=== PATIENT | female | born 1940 | race Caucasian/White ===

== ENCOUNTER 2024-06-08 05:09 | Day surgery (SDC) | payer OTHER ==
[2024-06-07 19:44] VITALS: BMI 22.1
[2024-06-08] MEDS ORDERED: ISOSULFAN BLUE 50 MG/5 ML VIAL SQ ONE (07:58)
[2024-06-08] MEDS ORDERED: LIDOCAINE HCL 1%, 10 MG/ML (20ML VIAL) ONE (07:58)
[2024-06-08] MEDS ORDERED: PROPOFOL 20 ML ONE (08:51)
[2024-06-08] MEDS ORDERED: LIDOCAINE HCL/PF 2% SDV 5ML VIAL ONE (08:52)
[2024-06-08] MEDS: ceFAZolin SODIUM 1 GM VIAL IVPB ONE ×2 (09:55)
[2024-06-08] MEDS ORDERED: KETOROLAC TROMETHAMINE 30 MG/1 ML VIAL ONE (09:57)
[2024-06-08] MEDS ORDERED: ONDANSETRON 4 MG/2 ML VIAL ONE (09:57)
[2024-06-08] MEDS ORDERED: DEXAMETHASONE SOD PHOSPHATE 4 MG/1 ML VIAL ONE (09:57)
[2024-06-08] MEDS ORDERED: ONDANSETRON 4 MG/2 ML VIAL IVPUSH PRN (11:00)
[2024-06-08] MEDS: ACETAMINOPHEN 1000 MG/100 ML BAG IVPB ONE (11:15)
[2024-06-08] MEDS: LACTATED RINGERS SOLUTION 1,000 ML IV SCH (15:20)
[2024-06-08] MEDS: CEFAZOLIN 1 GM in DEXTROSE 5%-WATER - 50 ML IVPB SCH (17:51)
[2024-06-09] MEDS: oxyCODONE HCL 5 MG TABLET PO ONE (01:07)
[2024-06-09 13:56] VITALS: BP 119/75; PULSE 81; RESP 17; TEMP 98.7
== END 2024-06-09 13:30 | disposition home or self-care (01) ==
LOC: JASUSAT 05:09 → J6S 15:47 → JASUSAT 06-09 13:30
PROVIDERS: ATTEND Surgery
PROC: 07B90ZX Excision of Left Internal Mammary Lymphatic, Open Approach, Diagnostic (ICD-10-PCS; 2024-06-08)
PROC: C71L1ZZ Planar Nuclear Medicine Imaging of Upper Chest Lymphatics using Technetium 99m (Tc-99m) (ICD-10-PCS; 2024-06-08)
PROC: 0HTU0ZZ Resection of Left Breast, Open Approach (ICD-10-PCS; principal; 2024-06-08 09:00)
PROC: 07B60ZX Excision of Left Axillary Lymphatic, Open Approach, Diagnostic (ICD-10-PCS; 2024-06-08 09:00)
DX: C50.912 Malignant neoplasm of unspecified site of left female breast (principal)
CPT/HCPCS: 78195-TC; 82962; 86850; 86900; 86901; 88305-TC; 88307-TC; 88309-TC; 88342-TC; 94010; 94760; A9541; J0131